=== PATIENT | female | born 1950 | race Caucasian/White ===

== ENCOUNTER 2024-10-03 12:36 | Outpatient (AMB) | payer MEDICARE, SELFPAY ==
--- NOTE | 2024-10-03 12:40 | MHC.OFFVIS ---
Intake Visit Reasons: New Pt - Right Olecranon ORIF 2013 - Discuss YU Intake Note: Delores is a 74 year old female who presents today as a new patient with complaints of Right Elbow Pain. Hx of Right Olecranon ORIF 10/19/2014. Patient reports painful orthopedic hardware and would like to discuss YU. Allergies No Known Allergies [No Known Allergies*] Allergy (Unverified 08/06/20 18:48) HPI HPI New Pt - Right Olecranon ORIF 2013 - Discuss YU: Details: This is a 74-year-old who is now approximately 10 years status post ORIF of her right olecranon. She has been doing well but does notice the prominence of the plate in his worried that if she hits her elbow complaint will become exposed. She has full function and motion of her right elbow Physical Exam Extrem Other: Full range of motion right elbow with prominent olecranon plate that is tender to palpation. Well-healed incision. Assessment & Plan Assessment & Plan (1) Retained orthopedic hardware: Code(s): Z96.9 - Presence of functional implant, unspecified Category: Medical Plan: This is a 74-year-old with retained orthopedic hardware in the right elbow. I reviewed options for her. The risks and obtaining a hardware in place our skin breakdown. The risks of removing the hardware are wound complications and pain. She would like to proceed forward with removal of hardware right elbow. She will be booked accordingly and let me know when she would like to do this. Coding Level of Care Code New Pt Level 4 (48573) Diagnoses Retained orthopedic hardware Z96.9
== END 2024-10-03 13:01 | disposition home or self-care (01) ==
PROVIDERS: PCP Hospitalist; Visit Provider Orthopaedic Surgery
DX: Z96.9 Presence of functional implant, unspecified (principal)
CPT/HCPCS: 99204

== ENCOUNTER → 2024-10-03 12:36 | Outpatient (BNVA) | payer MEDICARE, SELFPAY | PROVIDERS: PCP Hospitalist; Visit Provider Orthopaedic Surgery | DX: Z96.621 Presence of right artificial elbow joint (principal) | CPT/HCPCS: 99202 ==

== ENCOUNTER 2024-10-09 09:21 | Day surgery (SDC) | payer MEDICARE, OTHER, SELFPAY ==
[2024-10-08 09:55] VITALS: BMI 23.7
--- NOTE | 2024-10-08 12:04 | HO.ANESPROP2 ---
HPI - Anesthesia Eval Consult details Narrative: 74yo F for Right Removal Orthopedic Hardware of Elbow (screws and plate) Incomplete PMHx provided by surgical office. Likely hypothyroid, GERD, ?gout per external rx list. PMFSH Active Problems Active Problems: All Active Problems Retained orthopedic hardware (Acute) Past Medical History Medical History Primary biliary cholangitis GERD (gastroesophageal reflux disease) Thyroid disease Surgical History Surgical History (Updated 10/09/24 @ 10:57 by Sharona Burger RN) History of surgery on arm History of mandibular surgery Social History Social History (Updated 10/14/24 @ 13:05 by Soraida Arnold) Alcohol intake: never Patient Tobacco Use Status: Never used Tobacco Current occupational status: retired Current occupation: right hand dominant Meds Allergies Allergy/AdvReac Type Severity Reaction Status Date / Time iodine Allergy Unknown Rash Verified 10/29/24 10:42 Home Medications ?Medication ?Instructions ?Recorded ?Confirmed ?Last Taken ?Type levothyroxine 75 mcg tablet 75 mcg PO DAILY 10/08/24 10/08/24 Unknown History loratadine 10/08/24 Unknown History ursodiol 250 mg tablet 250 mg PO QID 10/08/24 10/08/24 Unknown History acetaminophen 325 mg tablet 650 mg PO Q6H PRN Pain 10/09/24 10/09/24 Unknown History famotidine 20 mg tablet 20 mg PO BEDTIME 10/09/24 10/09/24 Unknown History Exam Height,Weight and Vital Signs: Height 5 ft 4.02 in Weight 62.8 kg Assessment and Plan Assessment Anesthesia Assessment: Chart Reviewed
[2024-10-09] VITALS (10 sets, daily range): BP systolic 116–128; BP diastolic 54–63; PULSE 66–94; RESP 15–18; TEMP 36.1–36.7; O2SAT 91–100
--- NOTE | 2024-10-09 10:11 | MHC.SHP ---
Pre-Procedural Eval Section A - 24 Hr Update-Section A only Date of Service: 10/09/24 The patient is an INPATIENT: No Changes since office visit: No Cold of Flu in the past 2 weeks, No New Medical Problems, No Changes in Medication and No Patient answered all questions The patient has been examined within 24 hours of the surgical procedure. The History & Physical has been completed within 30 days and I have reviewed it.: Yes Section B - Complete if H&P > 30 days Chief Complaint: Presence of functional implant, unspecified Allergies: Allergies Allergy/AdvReac Type Severity Reaction Status Date / Time No Known Allergies Allergy Verified 10/09/24 10:07 [No Known Allergies*] Plan I have reviewed the history and physical and performed a pertinent physical examination on my patient. No changes have occurred unless specified. Time Spent With Patient Time: Total time managing care of this patient today ____ minutes.
--- NOTE | 2024-10-09 10:13 | P.CONAN_ITS ---
FORMERLY [facility] Active Problems Active Problems: All Active Problems Retained orthopedic hardware (Acute) Past Medical History Medical History Primary biliary cholangitis GERD (gastroesophageal reflux disease) Thyroid disease Functional capacity: independent ambulation Patient : No Family History Family history of problems with anesthesia: No Surgical History History of Problems with Anesthesia: No Social History Social History Advance Directives: No Advance Directives Information Provided: Yes Meds Allergies Allergy/AdvReac Type Severity Reaction Status Date / Time No Known Allergies Allergy Verified 10/09/24 10:07 [No Known Allergies*] Active Medications: Current Medications Acetaminophen (Ofirmev) 1,000 mg in 100 mls @ 400 mls/hr IV PREOP ONE Stop: 10/09/24 10:13 Lactated Ringer's (Lr) 1,000 mls @ 100 mls/hr IVCONT .Q10H IZABELLA Cefazolin Sodium/Dextrose (Ancef) 2 gm in 50 mls @ 100 mls/hr IV PREOP ONE Stop: 10/09/24 10:28 Home Medications ?Medication ?Instructions ?Recorded ?Confirmed ?Last Taken ?Type levothyroxine 75 mcg tablet 75 mcg PO DAILY 10/08/24 10/08/24 Unknown History loratadine 10/08/24 Unknown History ursodiol 250 mg tablet 250 mg PO QID 10/08/24 10/08/24 Unknown History acetaminophen 325 mg tablet 650 mg PO Q6H PRN Pain 10/09/24 10/09/24 Unknown History famotidine 20 mg tablet 20 mg PO BEDTIME 10/09/24 10/09/24 Unknown History Exam Height,Weight and Vital Signs: Height 5 ft 4.02 in Weight 62.8 kg Airway Mallampati Class: II TM Dist: >3cm Neck ROM: Full Heart: RRR Lungs: CTA Assessment and Plan Assessment Anesthesia Assessment: Anesthesia Plan Discussed and Chart Reviewed Final Anesthetic Review Family History of Problems with Anesthesia: No History of Problems with Anesthesia: No NPO: Yes ASA Class: II Final Preanesthetic Review: Meds/Allgs Chart Reviewed, Consent Obtained/Reviewed and Anes Risks/Benef Reviewed Patient Risk: Intermediate Procedure Risk: Low Anesthetic Plan Anesthetic Plan: GA Disposition: Standard PACU
--- NOTE | 2024-10-09 10:15 | HO.ANESPROP2 ---
FORMERLY [facility], [facility] Active Problems Active Problems: All Active Problems Retained orthopedic hardware (Acute) Past Medical History Medical History Primary biliary cholangitis GERD (gastroesophageal reflux disease) Thyroid disease Functional capacity: independent ambulation Family History Family history of problems with anesthesia: No Surgical History History of Problems with Anesthesia: No Social History Social History Advance Directives: No Advance Directives Information Provided: Yes Patient : No Meds Allergies Allergy/AdvReac Type Severity Reaction Status Date / Time No Known Allergies Allergy Verified 10/09/24 10:07 [No Known Allergies*] Active Medications: Current Medications Lactated Ringer's (Lr) 1,000 mls @ 100 mls/hr IVCONT .Q10H IZABELLA Cefazolin Sodium/Dextrose (Ancef) 2 gm in 50 mls @ 100 mls/hr IV PREOP ONE Stop: 10/09/24 10:28 Home Medications ?Medication ?Instructions ?Recorded ?Confirmed ?Last Taken ?Type levothyroxine 75 mcg tablet 75 mcg PO DAILY 10/08/24 10/08/24 Unknown History loratadine 10/08/24 Unknown History ursodiol 250 mg tablet 250 mg PO QID 10/08/24 10/08/24 Unknown History acetaminophen 325 mg tablet 650 mg PO Q6H PRN Pain 10/09/24 10/09/24 Unknown History famotidine 20 mg tablet 20 mg PO BEDTIME 10/09/24 10/09/24 Unknown History Exam Height,Weight and Vital Signs: Height 5 ft 4.02 in Weight 62.8 kg Airway Mallampati Class: II TM Dist: >3cm Neck ROM: Full Heart: RRR Lungs: CTA Assessment and Plan Assessment Anesthesia Assessment: Anesthesia Plan Discussed and Chart Reviewed Final Anesthetic Review Family History of Problems with Anesthesia: No History of Problems with Anesthesia: No NPO: Yes ASA Class: II Final Preanesthetic Review: Meds/Allgs Chart Reviewed, Consent Obtained/Reviewed and Anes Risks/Benef Reviewed Patient Risk: Intermediate Procedure Risk: Low Anesthetic Plan Anesthetic Plan: GA Disposition: Standard PACU
[2024-10-09] MEDS: Lactated Ringers 1,000 ML 100 ML IVCONT (10:59)
[2024-10-09] MEDS: fentaNYL citrate/PF 100 MCG/2 ML VIAL 25 MCG IVPUSH ×2 (13:50→13:55)
--- NOTE | 2024-10-09 15:44 | P.BOP_ITS ---
Brief Operative Note Date of Service: 10/09/24 Pre-op diagnosis: retained ortho hardware Post-op diagnosis: same Procedure: YU right elbow Surgeon: Reggie Rachel MD Anesthesia: GLMA Was an Websphere Process Server Developer used for this Procedure?: Yes Websphere Process Server Developer: Kamilah Corral Estimated blood loss (mL): 5 Tourniquet time (min): 20 IV fluids (mL): 500 Pathology: none sent Condition: stable Disposition: PACU
--- NOTE | 2024-10-16 09:19 | P.OP_ITS ---
Operative Note Operative Note Date of Service: 10/09/24 Narrative: Date of Service: 10/09/24 Pre-op diagnosis: retained ortho hardware Post-op diagnosis: same Procedure: YU right elbow Surgeon: Reggie Rachel MD Anesthesia: GLMA Was an Thermal Surfacing Machine Operator used for this Procedure?: Yes Thermal Surfacing Machine Operator: Kamilah Corral Estimated blood loss (mL): 5 Tourniquet time (min): 20 IV fluids (mL): 500 Pathology: none sent Condition: stable Disposition: PACU Procedure in detail: Patient was brought to the operating room and placed in the beach chair position on the surgical table. She was prepped and draped in standard sterile fashion and a time out was called to identify proper site, proper procedure and IV antibiotics per weight were administered. I began by making an incision over the previous surgical incision. Full thickness flaps were taken down to the plate and a periosteal elevator was used to remove soft tissue from the plate. All screws and the plate were then removed without difficulty. The screw holes and extraneous bone were debrided with a currette and rongeur. I then irrigated and performed a layered closure with absorbable suture and skin glue. Local anesthetic was administered before and after incision. The patient was placed in sterile dressings, extubated and brought to the recovery room in stable condition.
== END 2024-10-09 15:51 | disposition home or self-care (01) ==
LOC: HO.SSS 09:22
PROVIDERS: PCP Nurse Practitioner Family; Visit Provider Orthopaedic Surgery
PROC: (CPT 20680; principal; 2024-10-09 11:30)
DX: Z47.2 Encounter for removal of internal fixation device (principal); Z96.9 Presence of functional implant, unspecified; K21.9 Gastro-esophageal reflux disease without esophagitis; E07.9 Disorder of thyroid, unspecified; K74.3 Primary biliary cirrhosis; Z79.899 Other long term (current) drug therapy; Z98.890 Other specified postprocedural states
CPT/HCPCS: 20680; J0131; J0690; J1100; J2003; J2405; J2704; J2795; J3010

== ENCOUNTER → 2024-10-09 09:21 | Outpatient (BNV) | payer MEDICARE, SELFPAY | PROVIDERS: PCP Nurse Practitioner Family; Visit Provider Orthopaedic Surgery | DX: T84.84XA Pain due to internal orthopedic prosthetic devices, implants and grafts, initial encounter (principal) | CPT/HCPCS: 20680 ==

== ENCOUNTER 2024-10-14 12:56 | Outpatient (AMB) | payer MEDICARE, SELFPAY ==
--- NOTE | 2024-10-14 13:00 | A.OFFVIS_ITS ---
Vital Signs 10/14/24 13:05 Height 5 ft 3 in Weight 137 lb BMI 24.3 Handedness Right Intake Visit Reasons: PO RT elbow YU 10/09/24 NE Intake Note: Delores is a 74 year old right hand dominant female who presents today for a post op appointment s/p YU right elbow 10/09/24 NE. Patient reports her pain is manageable. She states that she developed a rash the day after the surgery, she thinks she had a reaction from the iodine or from the bandage. Allergies iodine Allergy (Unknown, Verified 10/14/24 13:04) Rash HPI HPI PO RT elbow YU 10/09/24 NE: Details: 74-year-old right-hand dominant female who presents in the office today 5 days status post right elbow removal of orthopedic hardware, which was performed on 10/09/[address] Rachel. While in the office today, the patient reports experiencing pain that is tolerable. The patient mentions that she developed a rash after the day of surgery and believes she had a reaction from the iodine or bandage reaction. [facility] Medical History Primary biliary cholangitis GERD (gastroesophageal reflux disease) Thyroid disease Surgical History (Updated 10/09/24 @ 10:57 by Sharona Burger RN) History of surgery on arm History of mandibular surgery Social History (Updated 10/14/24 @ 13:05 by Soraida Arnold) Alcohol intake: never Patient Tobacco Use Status: Never used Tobacco Current occupational status: retired Current occupation: right hand dominant Review of Systems Const All systems reviewed & are unremarkable except as noted in HPI and below Physical Exam Vital Signs: BMI result Body Mass Index 24.3 Const General: cooperative, healthy appearing and no acute distress Resp Effort & Inspection: normal respiratory effort and able to speak in complete sentences Cardio Rate: regular rate Peripheral pulses: Peripheral pulses 2+ throughout GI Palpation (GI): Soft to palpation Skin Lesions: no lesions Rashes: no rashes Extrem Other: Right elbow: Incision site is clean, dry, and intact. Steri-strips are intact. No surrounding erythema or drainage. No signs of infection. She does have a mild pruritic papular rash from the elbow distally to the wrist with no signs of infection. Lacking about 20 degrees of full flexion. Able to reach full extension. NVI. Assessment & Plan Assessment & Plan (1) Retained orthopedic hardware: Code(s): Z96.9 - Presence of functional implant, unspecified Category: Medical Plan Ms. Alvarez is a 74-year-old right-hand dominant female who presents in the office today 5 days status post right elbow removal of orthopedic hardware, which was performed on 10/09/[address] Rachel. While in the office today, the patient reports experiencing pain that is tolerable. The patient mentions that she developed a rash after the day of surgery and believes she had a reaction from the iodine or bandage reaction. Steri-strips are intact and will remain until they fall off on their own. She was referred to physical therapy to work on range of motion. I have prescribed a topical 1% hydrocortisone BID PRN to assist with her ongoing pruritic rash. She was advised to keep the area clean and dry. She may shower normally. Follow-up will be in 2 weeks, or sooner if needed. Medications: New hydrocortisone 1% (Cortisone (hydrocortisone)) 1 appl topical BID PRN 28.35 grams 0RF itching Patient Instructions: Scribed by Brigette Nolan medical officer psychiatry, for Kamilah Corral PA-C on 10/14/24 at 1:15 pm EST. Coding Level of Care Code Global (06044) Diagnoses Retained orthopedic hardware Z96.9
[2024-10-14 13:05] VITALS: BMI 24.3
== END 2024-10-14 13:19 | disposition home or self-care (01) ==
PROVIDERS: PCP Nurse Practitioner Family; Visit Provider Physician Assistant
DX: Z96.9 Presence of functional implant, unspecified (principal)
CPT/HCPCS: 99024

== ENCOUNTER → 2024-10-14 12:56 | Outpatient (BNVA) | payer MEDICARE, SELFPAY | PROVIDERS: PCP Nurse Practitioner Family; Visit Provider Physician Assistant | DX: Z47.89 Encounter for other orthopedic aftercare (principal); Z98.890 Other specified postprocedural states | CPT/HCPCS: 99212 ==

== ENCOUNTER 2024-10-29 10:36 | Outpatient (REF) | payer MEDICARE, SELFPAY ==
--- NOTE | ~2024-10-29 | XR_ITS ---
EXAMINATION: XR RIGHT ELBOW CLINICAL INFORMATION: Pain in unspecified elbow M25.529. COMPARISON: XR Elbow 08/14/2020 TECHNIQUE: AP, lateral, and oblique views of the right elbow. FINDINGS: Anatomic alignment. Ghost tracks in the proximal ulna. No evidence of acute fracture. No effusion. 5 mm dystrophic ossification versus loose body adjacent to the lateral humeral epicondyle. Mild medial epicondyle spurring. Punctate density adjacent to the medial humeral epicondyle. XR/XR elbow RT min 3V IMPRESSION: No acute osseous abnormality. Small chronic ossification/loose body adjacent to the lateral humeral epicondyle. Study is assigned/presented to me for interpretation on Dec 05, 2024 Electronically signed by: Tony Albert MD 12/05/2024 12:57 PM OLINDA
== END 2024-10-29 10:37 | disposition home or self-care (01) ==
LOC: HO.HOSX 10:36
PROVIDERS: PCP Nurse Practitioner Family; Visit Provider Physician Assistant
DX: M25.521 Pain in right elbow (principal); Z96.9 Presence of functional implant, unspecified
CPT/HCPCS: 73080; 99212

== ENCOUNTER 2024-10-29 10:36 | Outpatient (AMB) | payer MEDICARE, SELFPAY ==
--- NOTE | 2024-10-29 10:38 | A.OFFVIS_ITS ---
Intake Visit Reasons: PO RT elbow YU 10/09/24 NE-2 WK Intake Note: Delores is a 74 year old right hand dominant female who presents today for a post op appointment s/p YU right elbow 10/09/24 NE. Patient reports she is doing well. She is having mild pain around her elbow. Patient mentions if she can have a print out of her order for PT since she is going to [place]. Allergies iodine Allergy (Unknown, Verified 10/29/24 10:42) Rash HPI HPI PO RT elbow YU 10/09/24 NE-2 WK: Details: 74-year-old right-hand dominant female who presents in the office today 2 weeks status post right elbow removal of hardware, which was performed on 10/09/[address] Rachel. I last saw the patient in the office on 10/14/24, when she was referred to physical therapy to work on range of motion. She mentioned having a pruritic rash in that encounter; therefore, a prescription for topical 1% hydrocortisone BID PRN was sent to the pharmacy. While in the office today, the patient reports she is doing well post- operatively. She mentions experiencing mild pain around her right elbow. The patient is travelling to [place]. She requests having a printout of her physical therapy order. [facility] Medical History Primary biliary cholangitis GERD (gastroesophageal reflux disease) Thyroid disease Surgical History (Updated 10/09/24 @ 10:57 by Sharona Burger RN) History of surgery on arm History of mandibular surgery Social History (Updated 10/14/24 @ 13:05 by Soraida Arnold) Alcohol intake: never Patient Tobacco Use Status: Never used Tobacco Current occupational status: retired Current occupation: right hand dominant Review of Systems Const All systems reviewed & are unremarkable except as noted in HPI and below Physical Exam Const General: cooperative, healthy appearing and no acute distress Resp Effort & Inspection: normal respiratory effort and able to speak in complete sentences Cardio Rate: regular rate Peripheral pulses: Peripheral pulses 2+ throughout GI Palpation (GI): Soft to palpation Skin Lesions: no lesions Rashes: no rashes Extrem Other: Right elbow: Incision site is clean, dry, and intact. No surrounding erythema or drainage. No signs of infection. She has full painless range of motion. NVI. Assessment & Plan Assessment & Plan (1) Retained orthopedic hardware: Code(s): Z96.9 - Presence of functional implant, unspecified Category: Medical Plan Ms. Alvarez is a 74-year-old right-hand dominant female who presents in the office today 2 weeks status post right elbow removal of hardware, which was performed on 10/09/[address] Rachel. I last saw the patient in the office on 10/14/24, when she was referred to physical therapy to work on range of motion. She mentioned having a pruritic rash in that encounter; therefore, a prescription for topical 1% hydrocortisone BID PRN was sent to the pharmacy. While in the office today, the patient reports she is doing well post- operatively. She mentions experiencing mild pain around her right elbow. The patient is travelling to [place]. She requests having a printout of her physical therapy order. We discussed the role of physical therapy. The patient expressed interest in strengthening her elbow; however, she is not sure if she needs to attend formal physical therapy for that. I have provided her with a handout of elbow strengthening exercises as well as a printout copy of the physical therapy prescriptions should she wish to attend formal physical therapy in [place]. Follow-up will be PRN, or sooner if needed. X-rays of the right elbow, which were obtained while in the office today and were reviewed by me, Kamilah Corral PA-C, revealed: Successful removal of hardware. Orders: Orders XR elbow RT min 3V Today M25.529 - Pain in unspecified elbow OT Evaluation and Treatment Today Z96.9 - Presence of functional implant, unspecified Patient Instructions: Scribed by Brigette Nolan biomedical equipment specialist, for Kamilah Corral PA-C on 10/29/24 at 11:38 am EST. Coding Level of Care Code Global (44796) Diagnoses Retained orthopedic hardware Z96.9
== END 2024-10-29 11:05 | disposition home or self-care (01) ==
PROVIDERS: PCP Nurse Practitioner Family; Visit Provider Physician Assistant
DX: Z96.9 Presence of functional implant, unspecified (principal)
CPT/HCPCS: 99024